=== PATIENT | female | born 1975 | race American Indian/Alaskan Native ===

== ENCOUNTER 2018-12-17 01:22 | Inpatient (IN) | payer MEDICARE, OTHER ==
[2018-12-17 01:30] VITALS: BMI 44.6
[2018-12-17] MEDS ORDERED: Albuterol-Ipratrop 3 mg / 0.5 (3 ml) UD IH STA (01:40)
--- NOTE | 2018-12-17 01:49 | ED PDOC ---
Arrival/HPI - General Chief Complaint: Shortness Of Breath Historian: Patient - History of Present Illness Narrative History of Present Illness (Text): 12/17/18 01:41 43 year old female, whose past medical history includes asthma, presents to the emergency department complaining of chest tightness and shortness of breath that began 2 hours prior to arrival. Patient reports she was diagnosed with the flu and chlamydia and finished her course of medication 4 days ago. Patient reports she no longer has yellow discharge, but reports burning when urinating. Patient is not on hormonal therapy. Patient denies any fever, chills, abdominal pain, nausea, vomiting, diarrhea, back pain, neck pain, headache, dizziness, or any other complaints. PMD: Dr. Flor Time/Duration: Other (2 hours) Symptom Onset: Sudden Symptom Course: Unchanged Activities at Onset: Light Context: Home Past Medical History - Provider Review Nursing Documentation Reviewed: Yes - Infectious Disease Hx of Infectious Diseases: None - Tetanus Immunization Tetanus Immunization: Up to Date - Reproductive Menopause: No Currently : No - Cardiac Hx Hypertension: Yes Hx Peripheral Edema: Yes (both lower extremities) - Pulmonary Hx Asthma: Yes Hx Sleep Apnea: (never finished 2nd part of sleep study) - Neurological Hx Dizziness: Yes Hx Headaches: Yes Hx Migraine: Yes - HEENT Hx HEENT Disorder: No - Renal Hx Renal Disorder: No - Endocrine/Metabolic Hx Endocrine Disorders: No - Hematological/Oncological Hx Blood Disorders: No - Integumentary Hx Dermatological Disorder: No - Musculoskeletal/Rheumatological Hx Musculoskeletal Disorders: (was in [facility] 5 yrs ago, cervical thoracic lumber h erniated discs) Hx Arthritis: Yes (both knees and hips) Hx Back Pain: Yes Hx Falls: Yes (uses cane, right knee gives out) Hx Herniated Disk: Yes (cervical thoracic lumbar neck injury 5 yrs ago post [facility]) Hx Osteoarthritis: Yes ("all over") Hx Spinal Stenosis: Yes Other/Comment: Chronic pain - Gastrointestinal Hx Gastrointestinal Disorders: No - Genitourinary/Gynecological Hx Genitourinary Disorders: No - Psychiatric Hx Anxiety: Yes Hx Depression: Yes Hx Panic Disorder: Yes Hx Post Traumatic Stress Disorder: Yes (post [facility] 5 yrs ago) Hx Substance Use: No - Surgical History Hx Section: Yes (x2) Hx Cholecystectomy: Yes - Anesthesia Hx Anesthesia: No Hx Anesthesia Reactions: No Hx Malignant Hyperthermia: No - Suicidal Assessment Feels Threatened In Home Enviroment: No Family/Social History - Physician Review Nursing Documentation Reviewed: Yes Family/Social History: No Known Family HX Smoking Status: Light Smoker < 10 Cigarettes Daily Hx Alcohol Use: No Hx Substance Use: No Hx Substance Use Treatment: No Allergies/Home Meds Allergies/Adverse Reactions: Allergies cortisone Allergy (Verified 12/25/16 20:48) RASH Home Medications: Home Meds Medication Instructions Recorded Confirmed RX: Oxycodone Hydrochloride 30 mg PO QID 09/12/12 12/17/18 [Oxycodone] RX: Potassium Chloride 20 meq PO DAILY 09/12/12 12/17/18 RX: Albuterol HFA [Ventolin HFA 90 0.09 mg IH Q6H PRN 11/25/12 12/17/18 mcg/actuation (8 g)] RX: Atenolol [Tenormin] 50 mg PO DAILY 12/17/18 12/17/18 RX: Carisoprodol [Soma] 350 mg PO DAILY PRN 12/17/18 12/17/18 RX: DULoxetine [Cymbalta] 60 mg PO DAILY 12/17/18 12/17/18 RX: Fluticasone Nasal [Flonase] 1 spr NS DAILY 12/17/18 12/17/18 RX: Fluticasone Propionate 50 mcg IH DAILY 12/17/18 12/17/18 [Flovent Diskus] RX: Hydrochlorothiazide [Microzide] 25 mg PO DAILY 12/17/18 12/17/18 RX: Losartan [Cozaar] 100 mg PO DAILY 12/17/18 12/17/18 RX: Oxycodone HCl [Oxycontin] 15 mg PO BID PRN 12/17/18 12/17/18 RX: Pantoprazole [Protonix EC Tab] 40 mg PO DAILY 12/17/18 12/17/18 RX: Sumatriptan Succinate [Imitrex] 25 mg PO DAILY 12/17/18 12/17/18 RX: amLODIPine [Norvasc] 10 mg PO DAILY 12/17/18 12/17/18 RX: busPIRone [Buspar] 10 mg PO TID 12/17/18 12/17/18 Review of Systems - Physician Review All systems were reviewed & negative as marked: Yes - Review of Systems Constitutional: absent: Fevers, Other (chills) Respiratory: SOB Cardiovascular: Chest Pain Gastrointestinal: absent: Diarrhea, Nausea, Vomiting Genitourinary Female: absent: Dysuria, Hematuria Musculoskeletal: absent: Back Pain, Neck Pain Neurological: absent: Headache, Dizziness Physical Exam Vital Signs Reviewed: Yes Vital Signs Temp Pulse Resp BP Pulse Ox 12/17/18 01:30 97.6 F 77 18 138/70 98 Temperature: Afebrile Blood Pressure: Normal Pulse: Regular Respiratory Rate: Normal Appearance: Positive for: Well-Appearing, Non-Toxic, Comfortable Pain Distress: None Mental Status: Positive for: Alert and Oriented X 3 (able to speak in full sentences ) - Systems Exam Head: Present: Atraumatic, Normocephalic Pupils: Present: PERRL Extroacular Muscles: Present: EOMI Conjunctiva: Present: Normal Mouth: Present: Moist Mucous Membranes Neck: Present: Normal Range of Motion Respiratory/Chest: Present: Decreased Breath Sounds (bilaterally). No: Respiratory Distress, Accessory Muscle Use Cardiovascular: Present: Regular Rate and Rhythm, Normal S1, S2. No: Murmurs, Rub, Gallop Abdomen: Present: Normal Bowel Sounds Neurological: Present: GCS=15, Speech Normal Skin: Present: Warm, Dry, Normal Color. No: Rashes Psychiatric: Present: Alert, Oriented x 3, Normal Insight, Normal Concentration Medical Decision Making ED Course and Treatment: 12/17/18 01:41 Impression: 43 year old female presents complaining chest tightness and shortness of breath that began 2 hours prior to arrival. Differential Diagnosis included but are not limited to: Pneumonia Bronchitis Chlamydia Psittaci Plan: -- Labs -- EKG -- CXR -- Chlamydia/GC RNA, TMA -- Douneb, Solu-medrol -- Influenza A B -- Reassess and disposition Progress Notes: 12/17/18 03:28 Case discussed with medical records secretary and Dr. Menjivar who is aware and agrees with the plan. Accepts patient into hospitalist service. - Lab Interpretations Lab Results: 12/17/18 02:10 12/17/18 02:10 Lab Results 12/17/18 03:26: D-Dimer, Quantitative < 200 12/17/18 02:10: NT-Pro-B Natriuret Pep 42.2 12/17/18 02:10: Urine Color Straw, Urine Appearance Clear, Urine pH 7.0, Ur Specific Belden 1.010, Urine Protein Negative, Urine Glucose (UA) Negative, Urine Ketones Negative, Urine Blood Trace-intact H, Urine Nitrate Negative, Urine Bilirubin Negative, Urine Urobilinogen 0.2, Ur Leukocyte Esterase Moderate H, Urine RBC 0 - 2, Urine WBC 5 - 10 H, Ur Epithelial Cells 3 - 4, Urine Bacteria Rare 12/17/18 02:10: C.trachomatis RNA (TMA) Not detected, N.gonorrhoeae RNA (TMA) Not detected 12/17/18 02:10: Sodium 137, Potassium 3.7, Chloride 103, Carbon Dioxide 26, Anion Gap 11, BUN 8, Creatinine 0.8, Est GFR ( Amer) > 60, Est GFR (Non- Af Amer) > 60, Random Glucose 105, Calcium 8.8, Magnesium 1.9, Total Bilirubin 0.3, AST 34, ALT 21, Alkaline Phosphatase 69, Troponin I < 0.01, Total Protein 7.1, Albumin 3.7, Globulin 3.4, Albumin/Globulin Ratio 1.1 12/17/18 02:10: Influenza Typ A,B (EIA) Negative for flu a/b 12/17/18 02:10: WBC 11.1 H, RBC 3.89, Hgb 9.9 L, Hct 31.8 L, MCV 81.7, MCH 25.4, MCHC 31.1, RDW 18.4 H, Plt Count 564 H, MPV 9.4, Neut % (Auto) 61.5, Lymph % (Auto) 30.9, Valley % (Auto) 5.2, Eos % (Auto) 2.0, Baso % (Auto) 0.4, Lymph # (Auto) 3.4, Valley # (Auto) 0.6, Eos # (Auto) 0.2, Baso # (Auto) 0.04, Absolute Neuts (auto) 6.80 H I have reviewed the lab results: Yes - RAD Interpretation Narrative RAD Interpretations (Text): 12/17/18 03:29 CXR Impression: As read by me, haziness noted to the entire right lung diffusely, cardiomegaly with vascular congestion. Maintenance Technician 3Rd Shift: ED Physician - EKG Interpretation Type: 12 lead EKG - Medication Orders Current Medication Orders: Acetaminophen (Tylenol 325mg Tab) 650 mg PO Q6H PRN PRN Reason: Fever >100.4 F Albuterol Sulfate (Albuterol 0.083% Inhal Cecelia (2.5 Mg/3 Ml) Ud) 2.5 mg INH Q8H JAMES Last Admin: 12/19/18 07:49 Dose: 2.5 mg Albuterol Sulfate (Albuterol 0.083% Inhal Cecelia (2.5 Mg/3 Ml) Ud) 2.5 mg INH Q2H PRN PRN Reason: Shortness of Breath Last Admin: 12/18/18 16:58 Dose: 2.5 mg Amlodipine Besylate (Norvasc) 10 mg PO DAILY [facility] Last Admin: 12/18/18 11:08 Dose: 10 mg MAR Blood Pressure Document 12/18/18 11:08 GGM (Rec: 12/18/18 11:09 [facility] [id number]) Blood Pressure Blood Pressure (100/60-150/90 mm Hg) 114/69 Buspirone HCl (Buspar) 10 mg PO TID [facility] Last Admin: 12/18/18 18:48 Dose: 10 mg Re-Assess: Reassess Psych Meds Document 12/18/18 19:48 FC (Rec: 12/19/18 03:06 FC [id number]) Reassess Psych Med Effective Duloxetine HCl (Cymbalta) 60 mg PO DAILY [facility] Last Admin: 12/18/18 10:53 Dose: 60 mg Guaifenesin (Robitussin) 100 mg PO Q4H PRN PRN Reason: Cough Last Admin: 12/18/18 23:16 Dose: 100 mg Ceftriaxone Sodium (Rocephin 1 Gram Ivpb) 1 gm in 100 mls @ 100 mls/hr IVPB DAILY [facility]; Protocol Last Admin: 12/18/18 10:54 Dose: 100 mls/hr eMAR Start Stop Document 12/18/18 10:54 GGM (Rec: 12/18/18 10:54 [facility] [id number]) Intravenous Solution Start Date 12/18/18 Start Time 10:54 End Date 12/18/18 End time 11:54 Total Infusion Time 60 Loratadine (Claritin) 10 mg PO DAILY [facility] Last Admin: 12/18/18 10:53 Dose: 10 mg Fluticasone Propionate [Flovent Diskus] 50 Mcg (Home Med) 50 mcg IH DAILY [facility] Last Admin: 12/18/18 10:53 Dose: Not Given Non-Admin Reason: not available Ondansetron HCl (Zofran Odt) 4 mg PO Q8H PRN PRN Reason: Nausea/Vomiting Last Admin: 12/18/18 13:14 Dose: 4 mg Oxycodone HCl (Oxycodone Immediate Release Tab) 30 mg PO Q8H PRN PRN Reason: Pain, severe (8-10) Last Admin: 12/18/18 23:16 Dose: 30 mg Pantoprazole Sodium (Protonix Ec Tab) 40 mg PO 0600 [facility] Last Admin: 12/19/18 06:10 Dose: 40 mg Potassium Chloride (K-Dur 20 Meq Er Tab) 20 meq PO BRK [facility] Last Admin: 12/18/18 10:54 Dose: 20 meq Prednisone (Prednisone Tab) 20 mg PO DAILY [facility] Discontinued Medications Albuterol Sulfate (Albuterol 0.083% Inhal Cecelia (2.5 Mg/3 Ml) Ud) 2.5 mg INH STAT STA Stop: 12/17/18 02:34 Last Admin: 12/17/18 03:03 Dose: 2.5 mg Albuterol/Ipratropium (Duoneb 3 Mg/0.5 Mg (3 Ml) Ud) 3 ml IH STAT STA Stop: 12/17/18 01:41 Last Admin: 12/17/18 02:20 Dose: 3 ml Atenolol (Tenormin) 50 mg PO DAILY [facility] Last Admin: 12/18/18 11:09 Dose: 50 mg MAR Pulse and Blood Pressure Document 12/18/18 11:09 GG (Rec: 12/18/18 11:09 [facility] [id number]) Pulse Pulse Rate (60-90 beats/min) 71 Blood Pressure Blood Pressure (100/60-150/90 mm Hg) 114/69 Azithromycin (Zithromax) 500 mg PO STAT STA; Protocol Stop: 12/17/18 03:23 Last Admin: 12/17/18 04:15 Dose: 500 mg Hydrochlorothiazide (Hydrodiuril) 25 mg PO DAILY [facility] Last Admin: 12/18/18 11:08 Dose: 25 mg Magnesium Sulfate/Dextrose (Magnesium Sulfate 1 Gm/100 Ml D5w) 1 gm in 100 mls @ 100 mls/hr IVPB ONCE ONE Stop: 12/17/18 03:34 Last Admin: 12/17/18 03:03 Dose: 100 mls/hr eMAR Start Stop Document 12/17/18 03:03 JOL (Rec: 12/17/18 03:04 JOL [id number]) Intravenous Solution Start Date 12/17/18 Start Time 03:03 End Date 12/17/18 End time 04:03 Total Infusion Time 60 Ceftriaxone Sodium (Rocephin 1 Gram Ivpb) 1 gm in 100 mls @ 100 mls/hr IVPB STAT STA; Protocol Stop: 12/17/18 04:21 Last Admin: 12/17/18 04:15 Dose: 100 mls/hr eMAR Start Stop Document 12/17/18 04:15 JOShahid (Rec: 12/17/18 04:15 ZEBL [id number]) Intravenous Solution Start Date 12/17/18 Start Time 04:15 End Date 12/17/18 End time 05:15 Total Infusion Time 60 Azithromycin (Zithromax 500mg In Ns) 500 mg in 250 mls @ 167 mls/hr IVPB DAILY JAMES; Protocol Last Admin: 12/18/18 10:55 Dose: 167 mls/hr eMAR Start Stop Document 12/18/18 10:55 GGM (Rec: 12/18/18 10:55 GG [id number]) Intravenous Solution Start Date 12/18/18 Start Time 12:00 End Date 12/18/18 End time 13:30 Total Infusion Time 90 Sodium Chloride (Sodium Chloride 0.9%) 1,000 mls @ 999 mls/hr IV .Q1H1M STA Stop: 12/18/18 17:23 Last Admin: 12/18/18 18:48 Dose: 999 mls/hr eMAR Start Stop Document 12/18/18 18:48 GGM (Rec: 12/18/18 18:48 [facility] [id number]) Intravenous Solution Start Date 12/18/18 Start Time 16:23 Influenza Virus Vaccine (Flucelvax Quad 3466-4589 Syr) 60 mcg IM .ONCE ONE Stop: 12/17/18 05:09 Ketorolac Tromethamine (Toradol) 30 mg IVP STAT STA Stop: 12/17/18 02:36 Last Admin: 12/17/18 03:04 Dose: 30 mg [facility] Pain Assessment Document 12/17/18 03:04 JOL (Rec: 12/17/18 03:04 [id number] Pain Reassessment Is this a pain reassessment? No Sleep Is patient sleeping during reassessment? No Presence of Pain Presence of Pain Yes Pain Scale Used Protocol: PSCALES Pain Scale Used Numeric Location Pain Location Body Site Chest Description Intensity of Pain at present 5 IVP Administration Document 12/17/18 03:04 JOL (Rec: 12/17/18 03:04 [id number] Charges for Administration # of IVP Administrations 1 Re-Assess: [facility] Pain Assessment Document 12/17/18 04:04 JOL (Rec: 12/17/18 04:18 [id number][facility] Pain Reassessment Is this a pain reassessment? Yes Sleep Is patient sleeping during reassessment? No Presence of Pain Presence of Pain No Losartan Potassium (Cozaar) 100 mg PO DAILY [facility] Last Admin: 12/18/18 11:15 Dose: Not Given Non-Admin Reason: Patient Refused Methylprednisolone (Solu-Medrol) 125 mg IVP STAT STA Stop: 12/17/18 01:41 Last Admin: 12/17/18 02:20 Dose: 125 mg IVP Administration Document 12/17/18 02:20 JOL (Rec: 12/17/18 03:03 [id number] Charges for Administration # of IVP Administrations 1 Methylprednisolone (Solu-Medrol) 40 mg IVP DAILY [facility] Last Admin: 12/18/18 10:54 Dose: 40 mg IVP Administration Document 12/18/18 10:54 GGM (Rec: 12/18/18 10:55 GGM [id number]) Charges for Administration # of IVP Administrations 1 Metronidazole (Flagyl) 2,000 mg PO ONCE ONE; Protocol Stop: 12/17/18 14:57 Last Admin: 12/17/18 17:48 Dose: 2,000 mg Oxycodone HCl (Oxycodone Immediate Release Tab) 30 mg PO Q8H PRN PRN Reason: Pain, severe (8-10) Oxycodone/Acetaminophen (Percocet 5/325 Mg Tab) 1 tab PO ONCE ONE Stop: 12/17/18 06:10 Last Admin: 12/17/18 06:32 Dose: 1 tab MAR Pain Assessment Document 12/17/18 06:32 KTB (Rec: 12/17/18 06:33 KTB [id number]) Pain Reassessment Is this a pain reassessment? No Presence of Pain Presence of Pain Yes Pain Scale Used Protocol: PSCALES Pain Scale Used Numeric Location Pain Location Body Site Back Description Intensity of Pain at present 10 Pneumococcal Polyvalent Vaccine (Pneumovax 23 Vaccine) 0.5 ml IM .ONCE ONE Stop: 12/17/18 05:09 - Scribe Statement The provider has reviewed the documentation as recorded by the Jenn Ch Provider Scribe Attestation: All medical record entries made by the Jenn were at my direction and personally dictated by me. I have reviewed the chart and agree that the record accurately reflects my personal performance of the history, physical exam, medical decision making, and the department course for this patient. I have also personally directed, reviewed, and agree with the discharge instructions and disposition. Disposition/Present on Arrival - Present on Arrival Any Indicators Present on Arrival: No History of DVT/PE: No History of Uncontrolled Diabetes: No Urinary Catheter: No History of Decub. Ulcer: No History Surgical Site Infection Following: None - Disposition Have Diagnosis and Disposition been Completed?: Yes Diagnosis: PNA (pneumonia) Disposition: HOSPITALIZED Disposition Time: 03:36 Patient Plan: Admission Condition: FAIR
[2018-12-17] MEDS ORDERED: Albuterol 0.083% Inhal Sol (2.5 mg/3 mL) UD INH STA (02:33)
[2018-12-17] MEDS ORDERED: Magnesium Sulfate 1 gm in D5W 1 GM/100 ML BAG IVPB ONE (02:35)
[2018-12-17 02:44] LABS: ALB/GLOB RATIO 1.1 (1.1-1.8); ALBUMIN 3.7 g/dL (3.0-4.8); ALT/SGPT 21 U/L (7-56); AST/SGOT 34 U/L (14-36); BLOOD UREA NITROGEN 8 mg/dL (7-21); CALCIUM 8.8 mg/dL (8.4-10.5); GFR NON-AFRICAN AMERICAN > 60
[2018-12-17 02:45] LABS: BASO # 0.04 K/mm3 (0.0-2.0); BASO % 0.4 % (0.0-3.0); EOS # 0.2 (0.0-0.7); HEMOGLOBIN 9.9 g/dL (12.0-16.0); LYMPH # 3.4 (1.2-3.4); LYMPH % 30.9 % (22.0-35.0); MEAN CELL VOLUME 81.7 fl (80.0-105.0); MEAN CORPUSCULAR HEMOGLOBIN 25.4 pg (25.0-35.0); MEAN CORPUSCULAR HGB CONC 31.1 g/dl (31.0-37.0); MEAN PLATELET VOLUME 9.4 fl (7.0-11.0); MONO # 0.6 (0.1-0.6); MONO % 5.2 % (1.0-6.0); RBC 3.89 10^6/uL (3.5-6.1); RED CELL DISTRIBUTION WIDTH 18.4 % (11.5-14.5); URINE BILIRUBIN NEGATIVE (NEGATIVE); URINE BLOOD TRACE-INTACT (NEGATIVE); URINE GLUCOSE (UA) NEGATIVE (NEGATIVE); URINE LEUKOCYTE ESTERASE MODERATE Leu/uL (NEGATIVE); URINE PROTEIN NEGATIVE mg/dL (<30 mg/dL); URINE UROBILINOGEN 0.2 E.U./dL (<1 E.U./dL); WHITE BLOOD COUNT 11.1 10^3/uL (4.5-11.0)
[2018-12-17 02:47] LABS: URINE APPEARANCE CLEAR (CLEAR); URINE COLOR STRAW (YELLOW)
[2018-12-17 02:57] LABS: TROPONIN I < 0.01 ng/mL
[2018-12-17 03:17] LABS: URINE RBC 0 - 2 /hpf (0-2)
[2018-12-17 03:18] LABS: URINE BACTERIA RARE /hpf
[2018-12-17] MEDS ORDERED: cefTRIAXone 1 gm 1 GM/100 ML BAG IVPB STA (03:22)
[2018-12-17] MEDS ORDERED: Albuterol HFA 90 mcg/actuation (8 g) IH PRN (04:49)
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
[2018-12-17] MEDS ORDERED: Albuterol 0.083% Inhal Sol (2.5 mg/3 mL) UD INH PRN (05:00)
[2018-12-17] MEDS ORDERED: Pneumococcal 23-Valent Vaccine IM ONE (05:08)
[2018-12-17] MEDS ORDERED: Influenza Vaccine 60 mcg/0.5 mL SYR (4YR UP) IM ONE (05:08)
[2018-12-17] MEDS ORDERED: Oxycodone/Acetaminophen 5/325 mg Tab PO ONE (06:09)
[2018-12-17] MEDS: Pantoprazole 40 mg EC Tab PO SCH (06:33)
[2018-12-17] MEDS: guaiFENesin 100 mg/5 ml Syrup UD PO PRN (06:35)
[2018-12-17] MEDS: Albuterol 0.083% Inhal Sol (2.5 mg/3 mL) UD INH SCH ×4 (07:32→21:00)
[2018-12-17] MEDS: Potassium Chloride 20 mEq ER Tab PO SCH (09:31)
[2018-12-17] MEDS: FLUTICASONE PROPIONATE 50 MCG IH SCH (09:32)
--- NOTE | 2018-12-17 10:09 | RAD ---
Date of service: 12/17/2018 HISTORY: sob COMPARISON: 11/25/2012 FINDINGS: LUNGS: No active pulmonary disease. PLEURA: No significant pleural effusion identified, no pneumothorax apparent. CARDIOVASCULAR: No aortic atherosclerotic calcification present. Normal cardiac size. No pulmonary vascular congestion. OSSEOUS STRUCTURES: No significant abnormalities. VISUALIZED UPPER ABDOMEN: Normal. OTHER FINDINGS: None. IMPRESSION: No active disease. No change from prior exam
[2018-12-17 12:15] LABS: HEPATITIS B SURFACE AG Negative (NEGATIVE)
[2018-12-17 12:21] LABS: HEPATITIS A IGM NEGATIVE (NEGATIVE); HEPATITIS B CORE AB NEGATIVE (NEGATIVE)
[2018-12-17 12:32] LABS: HEPATITIS C ANTIBODY NEGATIVE (NEGATIVE)
[2018-12-17] MEDS ORDERED: oxyCODONE 30 mg Immediate Release Tab PO PRN (14:14)
[2018-12-17] MEDS: oxyCODONE 15 mg Immediate Release Tab PO PRN (14:38)
--- NOTE | 2018-12-17 16:58 | CARD ---
APPROVED REPORT Date of service: 12/17/2018 EKG Measurement Heart [id number] <Conclusion> Normal sinus rhythm Normal ECG
[2018-12-18] MEDS: guaiFENesin 100 mg/5 ml Syrup UD PO PRN ×2 (00:16→23:16)
[2018-12-18] MEDS: oxyCODONE 15 mg Immediate Release Tab PO PRN ×2 (03:00→23:16)
[2018-12-18] MEDS: Albuterol 0.083% Inhal Sol (2.5 mg/3 mL) UD INH SCH ×4 (04:20→22:20)
[2018-12-18] MEDS: Pantoprazole 40 mg EC Tab PO SCH (05:10)
[2018-12-18 07:19] LABS: BASO # 0.02 K/mm3 (0.0-2.0); BASO % 0.1 % (0.0-3.0); EOS % 0.2 % (1.5-5.0); HEMOGLOBIN 9.4 g/dL (12.0-16.0); LYMPH # 4.7 (1.2-3.4); LYMPH % 27.6 % (22.0-35.0); MEAN CELL VOLUME 82.3 fl (80.0-105.0); MEAN CORPUSCULAR HEMOGLOBIN 24.8 pg (25.0-35.0); MEAN CORPUSCULAR HGB CONC 30.1 g/dl (31.0-37.0); MEAN PLATELET VOLUME 9.6 fl (7.0-11.0); MONO % 6.1 % (1.0-6.0); RBC 3.79 10^6/uL (3.5-6.1); RED CELL DISTRIBUTION WIDTH 18.4 % (11.5-14.5); WHITE BLOOD COUNT 16.8 10^3/uL (4.5-11.0)
[2018-12-18 07:47] LABS: ALB/GLOB RATIO 1.1 (1.1-1.8); ALBUMIN 3.8 g/dL (3.0-4.8); ALT/SGPT 36 U/L (7-56); AST/SGOT 105 U/L (14-36); BLOOD UREA NITROGEN 10 mg/dL (7-21); GFR NON-AFRICAN AMERICAN > 60
[2018-12-18] MEDS ORDERED: MethylPREDNISolone 40 mg Vial IVP SCH (10:00)
[2018-12-18] MEDS ORDERED: Azithromycin 500MG/NS 250ml 500 MG/250 ML BAG IVPB SCH (10:00)
[2018-12-18] MEDS: FLUTICASONE PROPIONATE 50 MCG IH SCH (10:53)
[2018-12-18] MEDS: Potassium Chloride 20 mEq ER Tab PO SCH (10:54)
[2018-12-18] MEDS: cefTRIAXone 1 gm 1 GM/100 ML BAG IVPB SCH (10:54)
[2018-12-18] MEDS ORDERED: Sodium Chloride 0.9% 1,000 ML IV STA (16:23)
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
[2018-12-19] MEDS: Pantoprazole 40 mg EC Tab PO SCH (06:10)
[2018-12-19 07:24] LABS: ALB/GLOB RATIO 1.1 (1.1-1.8); ALBUMIN 3.3 g/dL (3.0-4.8); ALT/SGPT 61 U/L (7-56); AST/SGOT 43 U/L (14-36); BLOOD UREA NITROGEN 10 mg/dL (7-21); CALCIUM 8.7 mg/dL (8.4-10.5); GFR NON-AFRICAN AMERICAN > 60
[2018-12-19 07:43] LABS: BASO # 0.02 K/mm3 (0.0-2.0); BASO % 0.1 % (0.0-3.0); EOS % 0.2 % (1.5-5.0); LYMPH # 4.6 (1.2-3.4); LYMPH % 28.1 % (22.0-35.0); MEAN CELL VOLUME 82.5 fl (80.0-105.0); MEAN CORPUSCULAR HEMOGLOBIN 25.1 pg (25.0-35.0); MEAN CORPUSCULAR HGB CONC 30.4 g/dl (31.0-37.0); MEAN PLATELET VOLUME 9.6 fl (7.0-11.0); MONO # 1.2 (0.1-0.6); MONO % 7.3 % (1.0-6.0); RBC 3.59 10^6/uL (3.5-6.1); RED CELL DISTRIBUTION WIDTH 18.4 % (11.5-14.5); WHITE BLOOD COUNT 16.5 10^3/uL (4.5-11.0)
[2018-12-19] MEDS: Albuterol 0.083% Inhal Sol (2.5 mg/3 mL) UD INH SCH (07:49)
[2018-12-19 07:57] VITALS: BP 111/73; PULSE 74; RESP 19; TEMP 98; O2SAT 96
[2018-12-19] MEDS: oxyCODONE 15 mg Immediate Release Tab PO PRN (08:52)
[2018-12-19] MEDS: Potassium Chloride 20 mEq ER Tab PO SCH (09:16)
[2018-12-19] MEDS: FLUTICASONE PROPIONATE 50 MCG IH SCH (09:16)
[2018-12-19] MEDS: cefTRIAXone 1 gm 1 GM/100 ML BAG IVPB SCH (09:17)
[2018-12-19] MEDS: guaiFENesin 100 mg/5 ml Syrup UD PO PRN (09:25)
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
[2018-12-20 16:42] LABS: C. PNEUMONIAE IGA <1:16 (<1:16); C. PNEUMONIAE IGG <1:64 (<1:64); C. PNEUMONIAE IGM <1:10 (<1:10); C. PSITTACI IGA <1:16 (<1:16); C. PSITTACI IGG <1:64 (<1:64); C. PSITTACI IGM <1:10 (<1:10)
== END 2018-12-19 13:34 | disposition home or self-care (01) | DRG 202 ==
LOC: ED 01:22 → ERH 03:29 → 3RNO 04:49
PROVIDERS: ADMIT Internal Medicine; ATTEND Internal Medicine
PROC: 3E0F7GC Introduction of Other Therapeutic Substance into Respiratory Tract, Via Natural or Artificial Opening (ICD-10-PCS; principal; 2018-12-17)
DX: J45.901 Unspecified asthma with (acute) exacerbation (principal); N39.0 Urinary tract infection, site not specified; N89.8 Other specified noninflammatory disorders of vagina; I10 Essential (primary) hypertension; M50.20 Other cervical disc displacement, unspecified cervical region; M51.26 Other intervertebral disc displacement, lumbar region; M51.24 Other intervertebral disc displacement, thoracic region; Z79.899 Other long term (current) drug therapy; Z87.891 Personal history of nicotine dependence